=== PATIENT | male | born 2000 | race Caucasian/White ===

== ENCOUNTER 2019-04-28 06:01 | Day surgery (SDC) | payer OTHER ==
[~2019-04-28] VITALS: Ht 180.3 cm; Wt 80.2 kg
[2019-04-28 06:47] VITALS: Ht 180.3 cm; Wt 80.2 kg
[2019-04-28 07:21] VITALS: BP 113/57; PULSE 70; RESP 18
[2019-04-28] MEDS ORDERED: MIDAZOLAM 1 MG/ML 2 ML INJ ONE ×2 (08:07)
[2019-04-28] MEDS ORDERED: FENTAnyl 50 MCG/ML VIAL ONE (08:07)
[2019-04-28 08:35] VITALS: BP 103/57; RESP 16
--- NOTE | 2019-04-29 08:19 | CONS ---
DATE OF ADMISSION: 04/28/2019 DATE OF CONSULTATION: PATIENT NAME: GABBY HANKS Dear Dr. Rey: I thank you very much for this kind referral. Mr. Gabby Hanks is a 19-year-old male patient who h as been referred to me for further evaluation of upper abdominal discomfort associated with nausea. The patient also has got gastroesophageal reflux disease with burping. He is status post antibiotic therapy for H. pylori infection. Not on nonsteroidal anti-inflammatory agents. Appetite is good. N o weight loss. No history of gallstones or liver disease. No change in the bowel habit or rectal bl eeding. No history of inflammatory bowel disease. Not a hypertensive or diabetic. No heart disease , lung problem, or kidney disease. 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 SOCIAL HISTORY: He is a smoker. Denies alcohol abuse. FAMILY HISTORY: No family history of gastrointestinal tract neoplasm. ALLERGIES: NO DRUG ALLERGIES. MEDICATIONS: None. PHYSICAL EXAMINATION: VITAL SIGNS: He is 5 feet 11 inches tall and weighs 174 pounds. HEART: Normal heart sounds. LUNGS: Clear. ABDOMEN: Soft, no masses. Normal bowel sounds. NEUROLOGIC: Normal neurological exam. IMPRESSION: 1. Upper abdominal discomfort associated with nausea. 2. Gastroesophageal reflux disease with burping. 3. Status post antibiotic therapy for Helicobacter pylori infection. 4. 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 5. The patient is a smoker. PLAN: 1. The patient was strongly advised to stop smoking. 2. Endoscopic examination for further evaluation. The procedure and possible complications are well explained to the patient. He understands and conse nts to the procedure. I thank you once again. With warmest personal regards, Dictated By: JUDITH FRANKS/COLIN Conf#: [id number] DID#: [id number]
== END 2019-04-28 13:56 | disposition home or self-care (01) ==
LOC: GIL 06:01
PROVIDERS: ATTEND Internal Medicine Gastroenterology
DX: K21.9 Gastro-esophageal reflux disease without esophagitis (principal); K29.30 Chronic superficial gastritis without bleeding
CPT/HCPCS: 43239; 88305; 88312; J2250; J3010; Z7610